=== PATIENT | male | born 1935 | race Caucasian/White ===

== ENCOUNTER → 2017-06-05 | Emergency (ER) | payer OTHER ==
[~2017-06-05] VITALS: Ht 172.7 cm; Wt 83.9 kg
[~2017-06-05] MED LIST: CEFUROXIME500 MG PO; ENALAPRIL MALEA10 MG; METOPROLOL SUCC25 MG; TAMSULOSIN HCL0.4 MG PO; TERAZOSIN HCL5 MG; XARELTO20 MG PO
== END | disposition home or self-care (01) ==
LOC: ER 09:01
DX: N30.81 Other cystitis with hematuria (principal)

== ENCOUNTER 2017-06-23 17:08 | Emergency (ER) | payer OTHER ==
[~2017-06-23] VITALS: Ht 175.3 cm; Wt 98.0 kg
== END 2017-06-23 21:39 | disposition home or self-care (01) ==
LOC: ER 17:08
DX: R34 Anuria and oliguria (principal); C61 Malignant neoplasm of prostate; N39.0 Urinary tract infection, site not specified; B96.29 Other Escherichia coli [E. coli] as the cause of diseases classified elsewhere; T83.091A Other mechanical complication of indwelling urethral catheter, initial encounter; Z46.6 Encounter for fitting and adjustment of urinary device; Y73.8 Miscellaneous gastroenterology and urology devices associated with adverse incidents, not elsewhere classified; Y92.89 Other specified places as the place of occurrence of the external cause